=== PATIENT | male | born 1980 | race Caucasian/White ===

== ENCOUNTER 2016-11-20 01:36 | Emergency (ER) | payer OTHER ==
[~2016-11-20] VITALS: Ht 188 cm; Wt 102.3 kg
[~2016-11-20 01:36] MED LIST: ATARAX,VISTARIL25 MG PO; AUGMENTIN875 MG PO; LORTAB 5-325 M1 EACH PO; NOHOMEMEDS; ZITHROMAX Z-PA250 MG PO
[2016-11-20] MEDS ORDERED: ERYTHROMYCIN O3.5 GM RIGHT EYE (03:27)
[2016-11-20 03:38] VITALS: BP 128/84
== END 2016-11-20 03:39 | disposition home or self-care (01) ==
LOC: EME 01:36 → EXP 01:36
DX: S05.01XA Injury of conjunctiva and corneal abrasion without foreign body, right eye, initial encounter (principal); W22.8XXA Striking against or struck by other objects, initial encounter; F17.200 Nicotine dependence, unspecified, uncomplicated
CPT/HCPCS: 99281; 99283